=== PATIENT | male | born 1955 | race Caucasian/White ===

== ENCOUNTER 2020-12-22 20:48 | Inpatient (IN) | payer BC, OTHER ==
[~2020-12-22] VITALS: Ht 188 cm; Wt 81.0 kg
[2020-12-23 01:00] VITALS: BP 99/67
[2020-12-23] MEDS ORDERED: PHARMACY MAY ADJ FOR RENAL FX MC PRN (01:30)
[2020-12-23] MEDS ORDERED: POLYETHYLENE GLYCOL 17 GM PACKET PO PRN (01:30)
[2020-12-23] MEDS ORDERED: ENOXAPARIN 40 MG/0.4 ML SQ SCH (01:30)
[2020-12-23] MEDS ORDERED: LABETALOL 5MG/ML, 20ML IVPush PRN (01:30)
[2020-12-23] MEDS ORDERED: ONDANSETRON 2MG/ML, 2ML IVPush PRN (01:30)
[2020-12-23] MEDS: DEXAMETHASONE 4 MG/ML, 1ML IVPush SCH ×4 (02:14→21:37)
[2020-12-23] MEDS: AZITHROMYCIN 500 MG TABLET PO SCH (02:14)
[2020-12-23] MEDS: ENOXAPARIN 40 MG/0.4 ML SQ SCH ×2 (02:14→14:53)
[2020-12-23] MEDS: INSULIN LISPRO 100 UNITS/ML, PEN SQ-INSULIN SCH ×4 (07:00→21:00)
[2020-12-23 07:08] LABS: MEAN CORPUSCULAR HEMOGLOBIN 31.7 pg (27.5-34.5); MEAN CORPUSCULAR HGB CONC 34.2 g/dL (33.2-36.2); MEAN PLATELET VOLUME 8.8 fL (7.4-10.4); PLATELET COUNT 143 x10^3/uL (130-400); RED BLOOD COUNT 5.11 x10^6/uL (4.38-5.82); RED CELL DISTRIBUTION WIDTH 13.8 % (9.4-14.8)
[2020-12-23 07:11] LABS: ANION GAP 7 mmol/L (5-15); CALCIUM 8.5 mg/dL (8.5-10.1); CHLORIDE 103 mmol/L (98-107); CREATININE 0.72 mg/dL (0.7-1.3)
[2020-12-23 07:52] LABS: <PLATELET ESTIMATE> ADEQUATE; <PLT MORPHOLOGY> NORMAL PLT MORPH; <RBC MORPHOLOGY> NORMAL; BAND#(MANUAL) 0.03 x10^3/uL; BANDS%(MANUAL) 1 % (0-7); LYMPH#(MANUAL) 0.37 x10^3/uL (1-3.4); LYMPHS% (MANUAL) 12 % (22-44); MONOS#(MANUAL) 0.22 x10^3/uL (0.3-2.7); MONOS% (MANUAL) 7 % (2-9); SEG#(MANUAL) 2.48 x10^3/uL (1.8-6.8); SEGS% (MANUAL) 80 % (42-75)
[2020-12-23] MEDS: ZINC SULFATE 220 MG CAPSULE PO SCH (09:43)
[2020-12-23] MEDS: FAMOTIDINE 20 MG TABLET PO SCH ×2 (09:43→21:37)
[2020-12-23] MEDS: ASCORBIC ACID 500 MG TABLET PO SCH ×2 (09:44→21:38)
[2020-12-23 09:46] LABS: HCT (SEDRATE) 44.5 % (39.2-51.8)
[2020-12-23] MEDS ORDERED: REMDESIVIR 200 MG in SODIUM CHLORIDE 0.9% 250 ML IVPB ONE (11:30)
[2020-12-23 11:33] LABS: D-DIMER 0.71 ug/mlFEU (0.00-0.52)
[2020-12-23] MEDS: THIAMINE 100MG TABLET PO SCH (12:40)
[2020-12-23] MEDS: CHOLECALCIFEROL 5,000u TAB PO SCH (12:40)
[2020-12-23 12:53] VITALS: BP 110/73
[2020-12-23 20:14] VITALS: BP 91/55
[2020-12-23] MEDS: MELATONIN 5 MG TABLET PO PRN (21:35)
[2020-12-24 01:22] VITALS: BP 86/52
[2020-12-24] MEDS: DEXAMETHASONE 4 MG/ML, 1ML IVPush SCH ×4 (02:03→20:50)
[2020-12-24] MEDS: ENOXAPARIN 40 MG/0.4 ML SQ SCH ×2 (02:03→13:31)
[2020-12-24 06:26] LABS: CHLORIDE 105 mmol/L (98-107)
[2020-12-24 06:34] LABS: ALANINE AMINOTRANSFERASE 96 U/L (12-78); ALBUMIN 2.3 g/dL (3.4-5.0); ALKALINE PHOSPHATASE 51 U/L (45-117); ANION GAP 3 mmol/L (5-15); BILIRUBIN,TOTAL 0.5 mg/dL (0.2-1.0); CALCIUM 8.4 mg/dL (8.5-10.1); CREATININE 0.74 mg/dL (0.7-1.3); TOTAL PROTEIN 6.1 g/dL (6.4-8.2)
[2020-12-24] MEDS: INSULIN LISPRO 100 UNITS/ML, PEN SQ-INSULIN SCH ×4 (07:00→21:00)
[2020-12-24 08:45] VITALS: BP 99/63
[2020-12-24] MEDS: FAMOTIDINE 20 MG TABLET PO SCH ×2 (09:15→20:50)
[2020-12-24] MEDS: ASCORBIC ACID 500 MG TABLET PO SCH ×2 (09:15→20:50)
[2020-12-24] MEDS: THIAMINE 100MG TABLET PO SCH (09:15)
[2020-12-24] MEDS: AZITHROMYCIN 500 MG TABLET PO SCH (09:15)
[2020-12-24] MEDS: ZINC SULFATE 220 MG CAPSULE PO SCH (09:15)
[2020-12-24] MEDS: CHOLECALCIFEROL 5,000u TAB PO SCH (09:16)
[2020-12-24] MEDS: REMDESIVIR 100 MG in SODIUM CHLORIDE 0.9% 250 ML IVPB SCH (11:53)
[2020-12-24 13:16] VITALS: BP 89/50
[2020-12-24 20:46] VITALS: BP 94/53
[2020-12-24] MEDS: MELATONIN 5 MG TABLET PO PRN (20:51)
[2020-12-25 00:51] VITALS: BP 86/48
[2020-12-25 02:59] VITALS: BP 86/49
[2020-12-25] MEDS: DEXAMETHASONE 4 MG/ML, 1ML IVPush SCH ×4 (03:01→21:45)
[2020-12-25] MEDS: ENOXAPARIN 40 MG/0.4 ML SQ SCH ×2 (03:01→15:48)
[2020-12-25 05:56] LABS: BASOPHILS % (AUTO) 0 % (0-1); EOSINOPHILS % (AUTO) 0 % (1-7); LYMPHOCYTES % (AUTO) 4 % (22-44); MEAN CORPUSCULAR HEMOGLOBIN 31.6 pg (27.5-34.5); MEAN CORPUSCULAR HGB CONC 34.1 g/dL (33.2-36.2); MEAN PLATELET VOLUME 8.4 fL (7.4-10.4); MONOCYTES % (AUTO) 6 % (2-9); NEUTROPHILS % (AUTO) 91 % (42-75); PLATELET COUNT 215 x10^3/uL (130-400); RED BLOOD COUNT 4.51 x10^6/uL (4.38-5.82); RED CELL DISTRIBUTION WIDTH 13.5 % (9.4-14.8)
[2020-12-25 06:09] LABS: ALANINE AMINOTRANSFERASE 127 U/L (12-78); ALBUMIN 2.4 g/dL (3.4-5.0); ANION GAP 4 mmol/L (5-15); CALCIUM 8.5 mg/dL (8.5-10.1); CHLORIDE 109 mmol/L (98-107)
[2020-12-25 06:12] LABS: ALKALINE PHOSPHATASE 51 U/L (45-117); BILIRUBIN,TOTAL 0.6 mg/dL (0.2-1.0); TOTAL PROTEIN 5.7 g/dL (6.4-8.2)
[2020-12-25 07:25] VITALS: BP 90/54
[2020-12-25] MEDS: INSULIN LISPRO 100 UNITS/ML, PEN SQ-INSULIN SCH ×4 (08:30→21:00)
[2020-12-25] MEDS: ASCORBIC ACID 500 MG TABLET PO SCH ×2 (08:31→21:44)
[2020-12-25] MEDS: THIAMINE 100MG TABLET PO SCH (08:32)
[2020-12-25] MEDS: FAMOTIDINE 20 MG TABLET PO SCH ×2 (08:33→21:44)
[2020-12-25] MEDS: AZITHROMYCIN 500 MG TABLET PO SCH (08:33)
[2020-12-25] MEDS: ZINC SULFATE 220 MG CAPSULE PO SCH (08:33)
[2020-12-25] MEDS: CHOLECALCIFEROL 5,000u TAB PO SCH (08:33)
[2020-12-25] MEDS: REMDESIVIR 100 MG in SODIUM CHLORIDE 0.9% 250 ML IVPB SCH (12:55)
[2020-12-25 14:01] VITALS: BP 94/59
[2020-12-25 20:09] VITALS: BP 92/54
[2020-12-26 01:08] VITALS: BP 106/68
[2020-12-26] MEDS: DEXAMETHASONE 4 MG/ML, 1ML IVPush SCH ×4 (02:19→21:05)
[2020-12-26] MEDS: ENOXAPARIN 40 MG/0.4 ML SQ SCH ×2 (02:20→14:52)
[2020-12-26 06:24] LABS: ALANINE AMINOTRANSFERASE 156 U/L (12-78); ALBUMIN 2.5 g/dL (3.4-5.0); ANION GAP 4 mmol/L (5-15); CHLORIDE 109 mmol/L (98-107); CREATININE 0.74 mg/dL (0.7-1.3)
[2020-12-26 06:27] LABS: ALKALINE PHOSPHATASE 51 U/L (45-117); BILIRUBIN,TOTAL 0.7 mg/dL (0.2-1.0); TOTAL PROTEIN 5.7 g/dL (6.4-8.2)
[2020-12-26 07:32] VITALS: BP 100/62
[2020-12-26] MEDS: INSULIN LISPRO 100 UNITS/ML, PEN SQ-INSULIN SCH ×4 (08:41→21:15)
[2020-12-26] MEDS: AZITHROMYCIN 500 MG TABLET PO SCH (08:42)
[2020-12-26] MEDS: CHOLECALCIFEROL 5,000u TAB PO SCH (08:42)
[2020-12-26] MEDS: THIAMINE 100MG TABLET PO SCH (08:42)
[2020-12-26] MEDS: FAMOTIDINE 20 MG TABLET PO SCH ×2 (08:42→21:03)
[2020-12-26] MEDS: ASCORBIC ACID 500 MG TABLET PO SCH ×2 (08:42→21:03)
[2020-12-26] MEDS: ZINC SULFATE 220 MG CAPSULE PO SCH (08:43)
[2020-12-26] MEDS: REMDESIVIR 100 MG in SODIUM CHLORIDE 0.9% 250 ML IVPB SCH (12:56)
[2020-12-26 14:44] VITALS: BP 103/59
[2020-12-26 20:36] VITALS: BP 106/54
[2020-12-26] MEDS: FUROSEMIDE 20 MG/2 ML IV SCH (21:04)
[2020-12-27 02:07] VITALS: BP 99/65
[2020-12-27] MEDS: ENOXAPARIN 40 MG/0.4 ML SQ SCH ×2 (02:31→15:18)
[2020-12-27] MEDS: DEXAMETHASONE 4 MG/ML, 1ML IVPush SCH ×4 (02:31→21:33)
[2020-12-27 06:34] LABS: BASOPHILS % (AUTO) 0 % (0-1); EOSINOPHILS % (AUTO) 0 % (1-7); LYMPHOCYTES % (AUTO) 3 % (22-44); MEAN CORPUSCULAR HGB CONC 33.3 g/dL (33.2-36.2); MEAN PLATELET VOLUME 8.4 fL (7.4-10.4); MONOCYTES % (AUTO) 5 % (2-9); NEUTROPHILS % (AUTO) 92 % (42-75); PLATELET COUNT 240 x10^3/uL (130-400); RED BLOOD COUNT 4.75 x10^6/uL (4.38-5.82); RED CELL DISTRIBUTION WIDTH 13.6 % (9.4-14.8)
[2020-12-27 06:50] LABS: CHLORIDE 108 mmol/L (98-107)
[2020-12-27 06:57] LABS: ALANINE AMINOTRANSFERASE 145 U/L (12-78); ALBUMIN 2.3 g/dL (3.4-5.0); ALKALINE PHOSPHATASE 50 U/L (45-117); ANION GAP 3 mmol/L (5-15); BILIRUBIN,TOTAL 0.7 mg/dL (0.2-1.0); CALCIUM 8.1 mg/dL (8.5-10.1); CREATININE 0.75 mg/dL (0.7-1.3); TOTAL PROTEIN 5.5 g/dL (6.4-8.2)
[2020-12-27] MEDS: INSULIN LISPRO 100 UNITS/ML, PEN SQ-INSULIN SCH ×4 (07:00→21:42)
[2020-12-27 07:45] VITALS: BP 84/55
[2020-12-27] MEDS: FAMOTIDINE 20 MG TABLET PO SCH ×2 (08:08→21:34)
[2020-12-27] MEDS: ASCORBIC ACID 500 MG TABLET PO SCH ×2 (08:08→21:33)
[2020-12-27] MEDS: AZITHROMYCIN 500 MG TABLET PO SCH (08:09)
[2020-12-27] MEDS: ZINC SULFATE 220 MG CAPSULE PO SCH (08:09)
[2020-12-27] MEDS: THIAMINE 100MG TABLET PO SCH (08:09)
[2020-12-27] MEDS: FUROSEMIDE 20 MG/2 ML IV SCH ×2 (08:22→21:33)
[2020-12-27] MEDS: CHOLECALCIFEROL 5,000u TAB PO SCH (08:22)
[2020-12-27] MEDS: REMDESIVIR 100 MG in SODIUM CHLORIDE 0.9% 250 ML IVPB SCH (11:44)
[2020-12-27 12:40] VITALS: BP 99/61
[2020-12-27 20:31] VITALS: BP 97/59
[2020-12-27] MEDS: GUAIFENESIN ER 600 MG TABLET PO SCH (21:34)
[2020-12-28 01:52] VITALS: BP 94/56
[2020-12-28] MEDS: ENOXAPARIN 40 MG/0.4 ML SQ SCH ×2 (02:24→14:25)
[2020-12-28] MEDS: DEXAMETHASONE 4 MG/ML, 1ML IVPush SCH ×4 (02:24→20:28)
[2020-12-28] MEDS: INSULIN LISPRO 100 UNITS/ML, PEN SQ-INSULIN SCH ×4 (08:12→21:00)
[2020-12-28] MEDS: FUROSEMIDE 20 MG/2 ML IV SCH (08:13)
[2020-12-28] MEDS: ZINC SULFATE 220 MG CAPSULE PO SCH (08:14)
[2020-12-28] MEDS: FAMOTIDINE 20 MG TABLET PO SCH (08:14)
[2020-12-28] MEDS: THIAMINE 100MG TABLET PO SCH (08:14)
[2020-12-28] MEDS: ASCORBIC ACID 500 MG TABLET PO SCH ×2 (08:14→20:27)
[2020-12-28] MEDS: AZITHROMYCIN 500 MG TABLET PO SCH (08:14)
[2020-12-28] MEDS: GUAIFENESIN ER 600 MG TABLET PO SCH ×2 (08:14→20:27)
[2020-12-28] MEDS: CHOLECALCIFEROL 5,000u TAB PO SCH (08:14)
[2020-12-28 08:52] VITALS: BP 85/57
[2020-12-28 14:09] VITALS: BP 90/59
[2020-12-28 19:13] VITALS: BP 113/68
[2020-12-29 00:49] VITALS: BP 112/68
[2020-12-29] MEDS: DEXAMETHASONE 4 MG/ML, 1ML IVPush SCH ×4 (02:33→19:53)
[2020-12-29] MEDS: ENOXAPARIN 40 MG/0.4 ML SQ SCH ×2 (02:34→16:13)
[2020-12-29] MEDS: INSULIN LISPRO 100 UNITS/ML, PEN SQ-INSULIN SCH ×4 (07:00→19:53)
[2020-12-29 07:02] VITALS: BP 102/64
[2020-12-29] MEDS: CHOLECALCIFEROL 5,000u TAB PO SCH (08:12)
[2020-12-29] MEDS: ASCORBIC ACID 500 MG TABLET PO SCH ×2 (08:12→19:53)
[2020-12-29] MEDS: ZINC SULFATE 220 MG CAPSULE PO SCH (08:12)
[2020-12-29] MEDS: THIAMINE 100MG TABLET PO SCH (08:13)
[2020-12-29] MEDS: GUAIFENESIN ER 600 MG TABLET PO SCH ×2 (08:13→19:53)
[2020-12-29 12:32] VITALS: BP 108/71
[2020-12-29] MEDS ORDERED: ZINC220C4 PO (17:55)
[2020-12-29] MEDS ORDERED: ASCO500T9 PO (17:55)
[2020-12-29] MEDS ORDERED: DEXA6TAB6 PO (17:55)
== END 2020-12-29 21:30 | disposition home or self-care (01) | DRG 177 ==
LOC: 5SO 23:52 → 3N 12-28 18:32
PROVIDERS: ADMIT Internal Medicine; ATTEND Internal Medicine
PROC: XW033E5 Introduction of Remdesivir Anti-infective into Peripheral Vein, Percutaneous Approach, New Technology Group 5 (ICD-10-PCS; principal; 2020-12-23)
DX: U07.1 COVID-19 (principal); J96.01 Acute respiratory failure with hypoxia; J12.82 Pneumonia due to coronavirus disease 2019; Z66 Do not resuscitate; Z96.641 Presence of right artificial hip joint
CPT/HCPCS: 36415; 71045; 80048; 80053; 82728; 82962; 83615; 83735; 84075; 84100; 84145; 84450; 84460; 85025; 85379; 85384; 85651; 86140; G0378; J1100; J1650; J1940; J7050